=== PATIENT | male | born 1965 | race Caucasian/White ===

== ENCOUNTER 2024-11-19 10:15 | Emergency (ER) | payer MEDICAID ==
[~2024-11-19] VITALS: Ht 167.6 cm; Wt 73.0 kg
[2024-11-19 10:20] VITALS: BP 151/103; PULSE 104; RESP 18; TEMP 36.9; O2SAT 93
[2024-11-19] MEDS: ACETAMINOPHEN 500MG TABLET PO ONE (11:49)
[2024-11-20] MEDS ORDERED: CELE-116 PO (10:48)
[2024-11-20] MEDS ORDERED: TAMS-54 PO (10:48)
[2024-11-20] MEDS ORDERED: LORA2ORA5 PO (10:48)
[2024-11-20] MEDS ORDERED: MIRT-89 PO (10:48)
[2024-11-20] MEDS ORDERED: VENL-180 PO (10:48)
[2024-11-20] MEDS ORDERED: CEFD300C3 PO (10:48)
[2024-11-20] MEDS ORDERED: LEVE100023 PO (10:48)
[2024-11-20] MEDS ORDERED: GABA-529 PO (10:48)
[2024-11-20] MEDS ORDERED: CYCL10TA21 PO (10:48)
[2024-11-21] MEDS ORDERED: LEVE100023 PO (09:42)
== END 2024-11-19 19:29 | disposition left against medical advice (07) ==
LOC: ER 10:15
DX: M79.605 Pain in left leg (principal); M79.604 Pain in right leg; G89.29 Other chronic pain; R10.9 Unspecified abdominal pain; R56.9 Unspecified convulsions; Z79.899 Other long term (current) drug therapy; W19.XXXA Unspecified fall, initial encounter; Y93.89 Activity, other specified; Y92.89 Other specified places as the place of occurrence of the external cause; Y99.8 Other external cause status
CPT/HCPCS: 99283